=== PATIENT | female | born 1970 | race Caucasian/White ===

== ENCOUNTER 2021-06-25 03:20 | Emergency (ER) | payer SELFPAY ==
[2021-06-25 03:33] VITALS: BP 125/89; PULSE 78; TEMP 98.2; BMI 24.2
[2021-06-25] MEDS ORDERED: IBUPROFEN 600 MG TABLET (FP) PO ONE ×2 (03:47→03:54)
== END 2021-06-25 04:18 | disposition home or self-care (01) ==
LOC: JER 03:20
DX: K08.89 Other specified disorders of teeth and supporting structures (principal)
CPT/HCPCS: 99283-25